=== PATIENT | male | born 1995 | race Caucasian/White ===

== ENCOUNTER 2019-04-07 10:35 | Emergency (ER) | payer BC ==
[2019-04-07] MEDS ORDERED: ONDANSETRON 4 MG/2 ML VIAL ONE (11:29)
[2019-04-07 11:45] LABS: Absolute Lymphocytes (CBC) 1.2 K/uL (0.7-4.9); Basophils % 0.3 % (0-1.3); Eosinophils % 2.3 % (0-4.4); Lymphocytes % 7.2 % (15.3-44.8); Monocytes % 3.2 % (3.3-12.3); RBC Red Blood Cell Count 5.54 M/uL (4.33-5.43)
[2019-04-07 12:15] LABS: ALT/SGPT 27 U/L (12-78); AST/SGOT 18 U/L (15-37); Albumin 4.9 g/dL (3.4-5.0); Alkaline Phosphatase 56 U/L (45-117); BUN Blood Urea Nitrogen 13 mg/dL (7-18); Bicarbonate 19 mmol/L (21-32); Bilirubin Direct 0.1 mg/dL (0-0.2); Bilirubin Total 0.5 mg/dL (0.2-1.0); Glucose Level 120 mg/dL (74-106); Lipase 69 U/L (73-393); Potassium 3.9 mmol/L (3.5-5.1); Protein, Total 8.3 g/dL (6.4-8.2); Sodium Level 140 mmol/L (136-145)
[2019-04-07 12:16] LABS: Blood Morphology Comment NOT SEEN (NOT SEEN); Platelet Estimate ADEQ
--- NOTE | 2019-04-07 12:47 | EDPHYS ---
Physician Documentation [facility] Name: Parish Nance Age: 23 yrs Sex: Male : 1995 Arrival Date: 04/07/2019 Time: 10:36 Bed 6 Private MD: ED Physician Andrez Clark HPI: 04/07 16:18 This 23 yrs old Male presents to ER via EMS with complaints of Abdominal kdr Pain, MUSCLE CRAMPING, MALAISE. 16:18 The patient presents with abdominal pain that is diffuse. Onset: The symptoms/episode kdr began/occurred gradually, this morning. The symptoms do not radiate. Associated signs and symptoms: Pertinent positives: nausea and vomiting. The symptoms are described as achy, crampy, vague, waxing/waning. Modifying factors: The symptoms are alleviated by nothing, the symptoms are aggravated by. Severity of pain: At its worst the pain was very mild mild in the emergency department the pain has resolved. The patient has not experienced similar symptoms in the past. The patient has not recently seen a physician. The patient drank nine beers yesterday and drinks on a regular basis. [place] poorly earlier today but now feels better and symptoms have nearly resolved. Historical: - Allergies: 10:43 No Known Allergies; hb - Home Meds: 10:43 None [Active]; hb - PMHx: 10:43 None; hb - PSHx: 10:43 None; hb - Immunization history:: Adult Immunizations up to date. - Social history:: Smoking status: Patient uses tobacco products, smokes one-half pack cigarettes per day. - Ebola Screening: : No symptoms or risks identified at this time. ROS: 16:18 Constitutional: Negative for fever, chills, and weight loss, Eyes: Negative for injury, kdr pain, redness, and discharge, ENT: Negative for injury, pain, and discharge, Neck: Negative for injury, pain, and swelling, Cardiovascular: Negative for chest pain, palpitations, and edema, Respiratory: Negative for shortness of breath, cough, wheezing, and pleuritic chest pain, Back: Negative for injury and pain, : Negative for injury, bleeding, discharge, and swelling, MS/Extremity: Negative for injury and deformity, Skin: Negative for injury, rash, and discoloration, Neuro: Negative for headache, weakness, numbness, tingling, and seizure activity. Psych: Negative for depression, anxiety, suicide ideation, homicidal ideation, and hallucinations, Allergy/Immunology: Negative for hives, rash, and allergies, Endocrine: Negative for neck swelling, polydipsia, polyuria, polyphagia, and marked weight changes, Hematologic/Lymphatic: Negative for swollen nodes, abnormal bleeding, and unusual bruising. 16:18 Abdomen/GI: Positive for abdominal pain, nausea and vomiting, Negative for diarrhea, constipation, abdominal cramps, abdominal distension. Exam: 16:18 Constitutional: This is a well developed, well nourished patient who is awake, alert, kdr and in no acute distress. Head/Face: Normocephalic, atraumatic. Eyes: Pupils equal round and reactive to light, extra-ocular motions intact. Lids and lashes normal. Conjunctiva and sclera are non-icteric and not injected. Cornea within normal limits. Periorbital areas with no swelling, redness, or edema. Neck: Trachea midline, no thyromegaly or masses palpated, and no cervical lymphadenopathy. Supple, full range of motion without nuchal rigidity, or vertebral point tenderness. No Meningismus. Chest/axilla: Normal chest wall appearance and motion. Nontender with no deformity. No lesions are appreciated. Cardiovascular: Regular rate and rhythm with a normal S1 and S2. No gallops, murmurs, or rubs. Normal PMI, no JVD. No pulse deficits. Respiratory: Lungs have equal breath sounds bilaterally, clear to auscultation and percussion. No rales, rhonchi or wheezes noted. No increased work of breathing, no retractions or nasal flaring. Abdomen/GI: Soft, non-tender, with normal bowel sounds. No distension or tympany. No guarding or rebound. No evidence of tenderness throughout. Back: No spinal tenderness. No costovertebral tenderness. Full range of motion. Skin: Warm, dry with normal turgor. Normal color with no rashes, no lesions, and no evidence of cellulitis. MS/ Extremity: Pulses equal, no cyanosis. Neurovascular intact. Full, normal range of motion. Neuro: Awake and alert, GCS 15, oriented to person, place, time, and situation. Cranial nerves II-XII grossly intact. Motor strength 5/5 in all extremities. Sensory grossly intact. Cerebellar exam normal. Normal gait. Psych: Awake, alert, with orientation to person, place and time. Behavior, mood, and affect are within normal limits. Vital Signs: 10:40 BP 131 / 77; Pulse 55; Resp 16; Temp 96.8(O); Pulse Ox 100% on R/A; Weight 74.84 kg; hb Height 5 ft. 8 in. (172.72 cm); Pain 5/10; 12:15 BP 116 / 60; Pulse 77; Resp 17; Pulse Ox 99% on R/A; Pain 1/10; hb 13:00 BP 122 / 64; Pulse 74; Resp 16; Pulse Ox 100% ; Pain 0/10; hb 10:40 Body Mass Index 25.09 (74.84 kg, 172.72 cm) hb MDM: 12:46 Patient medically screened. [facility] 16:18 Data reviewed: vital signs, nurses notes. Counseling: I had a detailed discussion with [facility] the patient and/or guardian regarding: the historical points, exam findings, and any diagnostic results supporting the discharge/admit diagnosis, lab results, radiology results, the need for outpatient follow up. 04/07 11:00 Order name: Basic Metabolic Panel; Complete Time: 12:37 [facility] 04/07 11:00 Order name: CBC with Diff; Complete Time: 12:37 [facility] 04/07 11:00 Order name: Creatinine for Radiology; Complete Time: 12:14 [facility] 04/07 11:00 Order name: Hepatic Function; Complete Time: 12:37 [facility] 04/07 11:00 Order name: Lipase; Complete Time: 12:37 [facility] 04/07 11:07 Order name: ETOH Level; Complete Time: 12:37 [facility] 04/07 11:00 Order name: IV Saline Lock; Complete Time: 11:19 [facility] 04/07 11:00 Order name: Labs collected and sent; Complete Time: 11: [facility] 04/07 12:17 Order name: Manual Differential; Complete Time: 12:37 EDMS Administered Medications: 11:18 Drug: NS 0.9% 1000 ml Route: IV; Rate: 1 bolus; Site: right antecubital; hb 12:20 Follow up: Response: No adverse reaction; IV Status: Completed infusion; IV Intake: hb 1000ml 12:14 Drug: Pepcid 20 mg Route: IVP; Site: right antecubital; hb 13:16 Follow up: Response: No adverse reaction hb Disposition: 04/07/19 12:46 Discharged to Home. Impression: Weakness, Nausea. - Condition is Stable. - Discharge Instructions: Fatigue, Nausea and Vomiting, Adult, [id number], Weakness, [id number]. - Prescriptions for Zofran 4 mg Oral Tablet - take 1 tablet by ORAL route every 12 hours As needed; 6 tablet. - Medication Reconciliation Form, Thank You Letter form. - Follow up: Private Physician; When: 2 - 3 days; Reason: If symptoms return, Further diagnostic work-up, Recheck today's complaints, Continuance of care, Re-evaluation by your physician. - Problem is new. - Symptoms have improved. Signatures: Dispatcher [employer] Liliana Gaines RN RN Andrez Clark MD MD [facility] Sunshine Varma RN RN Corrections: (The following items were deleted from the chart) 10:43 10:41 Social history: Smoking status: Patient/guardian denies using tobacco, hb 13:38 12:46 04/07/2019 12:46 Discharged to Home. Impression: Weakness; Nausea. Condition is sv Stable. Forms are Medication Reconciliation Form, Thank You Letter, Antibiotic Education, Prescription Opioid Use. Follow up: Private Physician; When: 2 - 3 days; Reason: If symptoms return, Further diagnostic work-up, Recheck today's complaints, Continuance of care, Re-evaluation by your physician. Problem is new. Symptoms have improved. kdr
--- NOTE | 2019-04-07 12:47 | ER ---
Nurse's Notes [facility] Name: Parish Nance Age: 23 yrs Sex: Male : 1995 Arrival Date: 04/07/2019 Time: 10:36 Bed 6 Private MD: Diagnosis: Weakness;Nausea Presentation: 04/07 10:37 Presenting complaint: EMS states: Malaise, muscle cramps, abdominal pain, and nausea hb since this morning. 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 Transition of care: patient was not received from another setting of care. Onset of symptoms was April 07, 2019. Risk Assessment: Do you want to hurt yourself or someone else? Patient reports no desire to harm self or others. Initial Sepsis Screen: Does the patient meet any 2 criteria? No. Patient's initial sepsis screen is negative. Does the patient have a suspected source of infection? No. Patient's initial sepsis screen is negative. Care prior to arrival: IV initiated. 18 GA, Glucose check: 116. 10:37 Method Of Arrival: EMS: [facility] hb 10:37 Acuity: JAZZ 3 hb Historical: - Allergies: 10:43 No Known Allergies; hb - Home Meds: 10:43 None [Active]; hb - PMHx: 10:43 None; hb - PSHx: 10:43 None; hb - Immunization history:: Adult Immunizations up to date. - Social history:: Smoking status: Patient uses tobacco products, smokes one-half pack cigarettes per day. - Ebola Screening: : No symptoms or risks identified at this time. Screenin:43 Abuse screen: Denies threats or abuse. Denies injuries from another. Nutritional hb screening: No deficits noted. Tuberculosis screening: No symptoms or risk factors identified. Fall Risk Total Ferreira Fall Scale indicates Low Risk Score (25-44 pts). Fall prevention measures have been instituted. Side Rails Up X 2 Frequent Obs/Assesments occuring Family Present and informed to notify staff if they need to leave bedside As available Patient and Family Educated on Fall Prevention Program and strategies. Assessment: 10:55 General: Appears in no apparent distress. Behavior is calm, cooperative. Pain: Pain hb currently is 5 out of 10 on a pain scale. Neuro: Level of Consciousness is awake, alert, obeys commands, Oriented to person, place, time, situation. Cardiovascular: Capillary refill < 3 seconds Patient's skin is warm and dry. Respiratory: Airway is patent Respiratory effort is even, unlabored, Respiratory pattern is regular, symmetrical. GI: Abdomen is non-distended, Bowel sounds present X 4 quads. Abd is soft and non tender X 4 quads. : No signs and/or symptoms were reported regarding the genitourinary system. EENT: No signs and/or symptoms were reported regarding the EENT system. Derm: Skin is intact, is healthy with good turgor, Skin is diaphoretic, Skin is pale, Skin temperature is cool. Musculoskeletal: Reports muscle cramping, diffuse. 12:00 Reassessment: Patient appears in no apparent distress at this time. Patient and/or hb family updated on plan of care and expected duration. Pain level reassessed. Patient is alert, oriented x 3, equal unlabored respirations, skin warm/dry/pink. 13:00 Reassessment: Patient appears in no apparent distress at this time. Patient and/or hb family updated on plan of care and expected duration. Pain level reassessed. Patient is alert, oriented x 3, equal unlabored respirations, skin warm/dry/pink. Patient states feeling better. Patient states symptoms have improved. Vital Signs: 10:40 BP 131 / 77; Pulse 55; Resp 16; Temp 96.8(O); Pulse Ox 100% on R/A; Weight 74.84 kg; hb Height 5 ft. 8 in. (172.72 cm); Pain 5/10; 12:15 BP 116 / 60; Pulse 77; Resp 17; Pulse Ox 99% on R/A; Pain 1/10; hb 13:00 BP 122 / 64; Pulse 74; Resp 16; Pulse Ox 100% ; Pain 0/10; hb 10:40 Body Mass Index 25.09 (74.84 kg, 172.72 cm) hb ED Course: 10:36 Patient arrived in ED. hb 10:37 Andrez Clark MD is Attending Physician. kdr 10:40 Triage completed. hb 10:40 Arm band placed on. hb 10:44 Varma, Sunshine, RN is Primary Nurse. hb 10:45 Patient has correct armband on for positive identification. Placed in gown. Bed in low hb position. Call light in reach. 10:55 Maintain EMS IV. Dressing intact. Good blood return noted. Site clean \T\ dry. Gauge \T\ hb site: 18g RIGHT AC. 13:35 No provider procedures requiring assistance completed. hb 13:35 IV discontinued, intact, bleeding controlled, No redness/swelling at site. Pressure hb dressing applied. Administered Medications: 11:18 Drug: NS 0.9% 1000 ml Route: IV; Rate: 1 bolus; Site: right antecubital; hb 12:20 Follow up: Response: No adverse reaction; IV Status: Completed infusion; IV Intake: hb 1000ml 12:14 Drug: Pepcid 20 mg Route: IVP; Site: right antecubital; hb 13:16 Follow up: Response: No adverse reaction hb Outcome: 12:46 Discharge ordered by . kdr 13:30 Discharged to home ambulatory, with family. hb 13:30 Condition: stable 13:30 Discharge instructions given to patient, Instructed on discharge instructions, follow up and referral plans. medication usage, Demonstrated understanding of instructions, follow-up care, medications, Prescriptions given X 1. 13:38 Patient left the ED. sv Signatures: Liliana Boyd RN RN sv Andrez Clark MD MD kdr Baxter, Heather, RN RN hb Corrections: (The following items were deleted from the chart) 10:43 10:41 Social history: Smoking status: Patient/guardian denies using tobacco, hb hb
== END 2019-04-07 13:38 | disposition home or self-care (01) ==
LOC: ER 10:35
DX: R53.1 Weakness (principal); R11.0 Nausea; F17.210 Nicotine dependence, cigarettes, uncomplicated
CPT/HCPCS: 36415; 80048; 80076; 80320; 83690; 85025; 96361; 96374; 99283; J2405

== ENCOUNTER 2021-07-24 18:18 | Emergency (ER) | payer BC, SELFPAY ==
[2021-07-24] MEDS ORDERED: MAGNES/ALUMIN/SIMET 30ML UCUP ONE (19:12)
[2021-07-24] MEDS ORDERED: dexAMETHasone 10 MG/ML VIAL ONE (19:14)
[2021-07-24] MEDS ORDERED: LIDOCAINE VISCOUS 2% SOLN 15 ML UDC ONE (19:15)
--- NOTE | 2021-07-24 19:45 | ER ---
Nurse's Notes [facility] Name: Parish Nance Age: 26 yrs Sex: Male : 1995 Arrival Date: 07/24/2021 Time: 18:24 Bed 10 Private MD: Diagnosis: Acute tonsillitis, unspecified Presentation: 07/24 18:31 Chief complaint: Patient states: sore throat that began Friday. Pt was seen at [facility] and had Covid, strep and flu testing which all came back negative. Coronavirus screen: Client denies travel out of the [place] in the last 14 days. Ebola Screen: Patient denies exposure to infectious person. Patient denies travel to an Ebola-affected area in the 21 days before illness onset. Initial Sepsis Screen: Does the patient meet any 2 criteria? No. Patient's initial sepsis screen is negative. Does the patient have a suspected source of infection? No. Patient's initial sepsis screen is negative. Risk Assessment: Do you want to hurt yourself or someone else? Patient reports no desire to harm self or others. Onset of symptoms was July 21, 2021. 18:31 Method Of Arrival: Ambulatory ss 18:31 Acuity: JAZZ 4 Triage Assessment: 19:09 General: Appears in no apparent distress. Behavior is calm, cooperative, appropriate tw5 for age. Historical: - Allergies: 18:34 No Known Allergies; ss - Immunization history:: Client reports having NOT received the Covid vaccine. - Social history:: Smoking status: Patient reports the use of cigarette tobacco products, smokes one-half pack cigarettes per day. Screenin:07 Abuse screen: Denies threats or abuse. Denies injuries from another. Nutritional tw5 screening: No deficits noted. Tuberculosis screening: No symptoms or risk factors identified. Fall Risk None identified. Assessment: 19:07 Pain: Complains of pain in uvula, left aspect of posterior pharynx and right aspect of tw5 posterior pharynx Pain currently is 6 out of 10 on a pain scale. Respiratory: Airway is patent Trachea midline Respiratory effort is even, unlabored, Breath sounds are clear. EENT: Throat is reddened has enlarged tonsils bilaterally. Vital Signs: 18:31 BP 137 / 94; Pulse 75; Resp 15; Temp 98.9(TE); Pulse Ox 100% on R/A; Weight 74.84 kg; Height 6 ft. 1 in. (185.42 cm); 18:31 Body Mass Index 21.77 (74.84 kg, 185.42 cm) ED Course: 18:24 Patient arrived in ED. mr 18:24 Maye ParnellJOHNNIE [facility] kb 18:24 Andrez Clark MD is Attending Physician. kb 18:34 Triage completed. ss 18:34 Arm band placed on right wrist. ss 18:45 Dariana De La Torre is Primary Nurse. tw5 19:07 Resting quietly. Awaiting lab results. tw5 19:07 Patient has correct armband on for positive identification. tw5 19:07 COVID swab sent to lab. tw5 19:09 Strep Sent. tw5 20:21 Chest Single View XRAY In Process Unspecified. EDMS 21:19 No provider procedures requiring assistance completed. Patient did not have IV access ld1 during this emergency room visit. 21:27 Primary Nurse role handed off by Dariana De La Torre bb Administered Medications: 19:09 Drug: GI Cocktail without - (Maalox Suspension 30 ml, Lidocaine Liquid 2 % 15 tw5 ml) Route: PO; 19:09 Drug: Decadron (dexamethasone) 10 mg Route: PO; tw5 Outcome: 19:44 Discharge ordered by . kb 21:19 Discharged to home ambulatory. ld1 21:19 Condition: stable 21:19 Discharge instructions given to patient, Instructed on discharge instructions, follow up and referral plans. medication usage, Demonstrated understanding of instructions, follow-up care, medications, Prescriptions given X 1. 21:20 Patient left the ED. ld1 21:29 Patient left the ED. ld1 21:30 Patient left the ED. bb Signatures: Dispatcher [employer] EDMS Parmjit MayeJOHNNIE-Kevin Ruba Kay mr MccurdySally, RN RN bb Lida Santiago RN RN Viktoriya Yee, LIA RN ld1 Dariana De La Torre tw5
--- NOTE | 2021-07-24 19:45 | EDPHYS ---
Physician Documentation [facility] Name: Parish Nance Age: 26 yrs Sex: Male : 1995 Arrival Date: 07/24/2021 Time: 18:24 Bed 10 Private MD: ED Physician Andrez Clark HPI: 07/24 19:43 This 26 yrs old Male presents to ER via Ambulatory with complaints of Sore kb Throat. 19:43 The patient presents with sore throat. The patient describes throat pain as constant. kb Onset: The symptoms/episode began/occurred 4 day(s) ago. Severity of symptoms: At their worst the symptoms were moderate, in the emergency department the symptoms are unchanged. Modifying factors: The symptoms are alleviated by nothing, the symptoms are aggravated by swallowing, Patient's oral intake status: good Denies contact with similarly ill indivduals. Associated signs and symptoms: Pertinent positives: fever, Sore throat. The patient has not experienced similar symptoms in the past. The patient has not recently seen a physician. Historical: - Allergies: 18:34 No Known Allergies; ss - Immunization history:: Client reports having NOT received the Covid vaccine. - Social history:: Smoking status: Patient reports the use of cigarette tobacco products, smokes one-half pack cigarettes per day. ROS: 19:43 Respiratory: Negative for shortness of breath, cough, wheezing, and pleuritic chest kb pain. 19:43 Constitutional: Positive for fever. 19:43 ENT: Positive for sore throat. 19:43 All other systems are negative. Exam: 19:43 Constitutional: This is a well developed, well nourished patient who is awake, alert, kb and in no acute distress. Head/Face: Normocephalic, atraumatic. Cardiovascular: Regular rate and rhythm with a normal S1 and S2. No gallops, murmurs, or rubs. No pulse deficits. Respiratory: Respirations even and unlabored. No increased work of breathing, no retractions or nasal flaring. Skin: Warm, dry with normal turgor. Normal color. MS/ Extremity: Pulses equal, no cyanosis. Neurovascular intact. Full, normal range of motion. Neuro: Awake and alert, GCS 15, oriented to person, place, time, and situation. Moves all extremities. Normal gait. Psych: Awake, alert, with orientation to person, place and time. Behavior, mood, and affect are within normal limits. 19:43 ENT: Posterior pharynx: Airway: normal, no evidence of obstruction, Tonsils: bilaterally enlarged, with erythema, with exudate, Uvula: normal, midline, swelling, that is moderate, erythema, that is moderate, exudate, that is moderate. Vital Signs: 18:31 BP 137 / 94; Pulse 75; Resp 15; Temp 98.9(TE); Pulse Ox 100% on R/A; Weight 74.84 kg; ss Height 6 ft. 1 in. (185.42 cm); 18:31 Body Mass Index 21.77 (74.84 kg, 185.42 cm) ss MDM: 18:34 Patient medically screened. kb 19:42 Data reviewed: vital signs, nurses notes. Data interpreted: Pulse oximetry: on room air kb is 100 %. Interpretation: normal. Counseling: I had a detailed discussion with the patient and/or guardian regarding: the historical points, exam findings, and any diagnostic results supporting the discharge/admit diagnosis, lab results, the need for outpatient follow up, a family practitioner, to return to the emergency department if symptoms worsen or persist or if there are any questions or concerns that arise at home. 07/24 18:35 Order name: Strep; Complete Time: 19:22 kb 07/24 19:23 Order name: Throat Culture EDMS 07/24 19:49 Order name: Chest Single View XRAY; Complete Time: 20:40 kb Administered Medications: 19:09 Drug: GI Cocktail without - (Maalox Suspension 30 ml, Lidocaine Liquid 2 % 15 tw5 ml) Route: PO; 19:09 Drug: Decadron (dexamethasone) 10 mg Route: PO; tw5 Disposition: 22:53 Co-signature as Attending Physician, Andrez Clark MD I agree with the assessment and kdr plan of care. Disposition Summary: 07/24/21 19:44 Discharge Ordered Location: Home kb Condition: Stable kb Diagnosis - Acute tonsillitis, unspecified kb Followup: kb - With: Emergency Department - When: As needed - Reason: Worsening of condition Followup: kb - With: Private Physician - When: 2 - 3 days - Reason: Recheck today's complaints, Continuance of care, Re-evaluation by your physician Discharge Instructions: - Discharge Summary Sheet kb - Tonsillitis, [id number] kb Forms: - Medication Reconciliation Form kb - Thank You Letter kb - Antibiotic Education kb - Prescription Opioid Use kb - Work release form bb Prescriptions: - Amoxicillin 875 mg Oral Tablet - take 1 tablet by ORAL route every 12 hours for 10 days; 20 tablet; Refills: 0, kb Product Selection Permitted Signatures: Dispatcher [employer] EDWI Maye Parnell, Andrez Aaron MD MD kdr Smirch, Shelby, LIA RN Dariana Krishna tw5
--- NOTE | 2021-07-24 20:31 | RAD REPORT ---
EXAM DESCRIPTION: RAD - Chest Single View - 07/24/2021 8:21 pm CLINICAL HISTORY: CHEST PAIN COMPARISON: Chest Pa And Lat (2 Views) dated 03/27/2018 FINDINGS: Lines: None. Lungs: No evidence of edema or pneumonia. Pleural: No significant pleural effusions or pneumothorax. Cardiac: The heart size is within normal limits. Bones: No acute fractures. Other: IMPRESSION: No acute cardiopulmonary disease.
[2021-07-24 21:38] VITALS: BP 137/94; TEMP 98.9; O2SAT 100
== END 2021-07-24 21:30 | disposition home or self-care (01) ==
LOC: ER 18:18
DX: J03.90 Acute tonsillitis, unspecified (principal); F17.210 Nicotine dependence, cigarettes, uncomplicated
CPT/HCPCS: 71045; 87070; 87081; 99284; J1100